=== PATIENT | female | born 1940 | race Caucasian/White ===

== ENCOUNTER 2019-05-22 08:41 | Emergency (ER) | payer MEDICARE, OTHER ==
[~2019-05-22] VITALS: Ht 162.6 cm; Wt 100.0 kg
[~2019-05-22 08:41] MED LIST: ASA LO-DOSE81 MG OR; ASPIRIN 8181 MG PO; ENALAPRIL10 MG PO; GLIMEPIRIDE2 MG PO; HYDREA500 MG PO; HYDROCHLOROT12.5 MG PO; HYDROCHLOROT25 MG OR; IMDUR30 MG OR; KEFLEX500 MG PO; KLOR-CON M2020 MEQ OR; METFORMIN1000 MG PO; METFORMIN500 MG PO; METOPROLOL TART50 MG PO; METOPROLOL100 M1 PO; METOPROLOL50 M1 PO; NAPROXEN500 MG PO; PLAVIX75 MG OR; PLAVIX75 MG PO; PRAVASTATIN SOD10 MG PO; TOPROL XL OR; TOPROL XL100 MG OR; TRICOR145 MG OR; ZOCOR40 MG OR; ZYLOPRIM300 MG PO; colcrys PO
[2019-05-22] MEDS ORDERED: ENALAPRIL10 MG PO (09:02)
[2019-05-22] MEDS ORDERED: METOPROL TAR25 MG PO (09:03)
[2019-05-22] MEDS ORDERED: GLIPIZIDE5 MG PO (09:04)
[2019-05-22] MEDS ORDERED: GLIPIZIDE ER10 M1 PO (10:02)
[2019-05-22] MEDS ORDERED: LOPRESSOR 550 MG/TAB PO (10:03)
[2019-05-22] MEDS ORDERED: CLOPIDOGREL75 MG PO (10:03)
[2019-05-22] MEDS ORDERED: ENALAPRIL MALEA20 MG PO (10:03)
[2019-05-22] MEDS ORDERED: NAPROXEN DR500 MG PO (10:09)
[2019-05-22 10:35] VITALS: BP 130/70
== END 2019-05-22 10:35 | disposition home or self-care (01) ==
LOC: ED 08:41
DX: S32.000A Wedge compression fracture of unspecified lumbar vertebra, initial encounter for closed fracture (principal); S70.02XA Contusion of left hip, initial encounter; E11.9 Type 2 diabetes mellitus without complications; W18.2XXA Fall in (into) shower or empty bathtub, initial encounter; Y93.E1 Activity, personal bathing and showering; Y92.002 Bathroom of unspecified non-institutional (private) residence as the place of occurrence of the external cause; Z79.84 Long term (current) use of oral hypoglycemic drugs

== ENCOUNTER 2019-12-13 | Emergency (ER) | payer MEDICARE, OTHER ==
[~2019-12-13] MED LIST changes: +AMOX/K CLAV875 M1 PO; +CLOPIDOGREL75 MG PO; +DOXYCYCL HYC100 MG PO; +ENALAPRIL MALEA20 MG PO; +GLIPIZIDE ER10 M1 PO; +GLIPIZIDE5 MG PO; +LISINOP/HCTZ1 TA1 PO; +LOPRESSOR 550 MG/TAB PO; +METOPROL TAR25 MG PO; +NAPROXEN DR500 MG PO; +PIOGLITAZONE HC30 MG PO
[2019-12-13] MEDS ORDERED: LEVEMIR100 UNIT/M SC (07:40)
[2019-12-13] MEDS ORDERED: HYDROCHLOROT25 MG PO (07:41)
[2019-12-13] MEDS ORDERED: LISINOPRIL2.5 MG PO (07:42)
[2019-12-13] MEDS ORDERED: CEPHALEXIN500 M1 PO (08:30)
== END 2019-12-13 08:47 | disposition home or self-care (01) ==
DX: L03.032 Cellulitis of left toe (principal); I10 Essential (primary) hypertension; E11.9 Type 2 diabetes mellitus without complications; I25.2 Old myocardial infarction; Z79.4 Long term (current) use of insulin

== ENCOUNTER 2019-12-15 05:30 | Inpatient (IN) | payer MEDICARE, OTHER ==
[~2019-12-15] VITALS: Ht 160 cm; Wt 102.4 kg
[2019-12-15] VITALS (18 sets, daily range): BP systolic 65–114; BP diastolic 31–76
[~2019-12-15 05:30] MED LIST changes: +CEPHALEXIN500 M1 PO; +HYDROCHLOROT25 MG PO; +LEVEMIR100 UNIT/M SC; +LISINOPRIL2.5 MG PO
--- NOTE | 2019-12-15 05:34 | NUR ---
PATIENT TO ROOM 14. UNDRESSED INTO A GOWN. PLACED ON MONITOR. TRIAGE COMPLETED AT BEDSIDE. AWAITING MD GIANG.
[2019-12-15 07:03] LABS: IMMATURE GRANULOCYTES 2.4 % (0.0-5.0); MEAN CORPUSCULAR HGB 19.6 pG CALC (26.0-32.0); MEAN CORPUSCULAR HGB CONC 29.2 g/L CALC (32.0-36.0); NEUT# 22.68 thou/uL (2.00-7.15); RED BLOOD COUNT 6.85 mill/uL (4.20-5.60); RED CELL DISTRI WIDTH 18.7 % (11.5-15.5)
[2019-12-15 07:06] LABS: HEMATOCRIT 45.9 % (37.0-47.0); HEMOGLOBIN 13.4 g/dl (12.0-16.0)
--- NOTE | 2019-12-15 07:07 | NUR ---
REPORT RECIEVED FROM SIN MURPHY; PT RETURNED FROM RADIOLOGY AT THIS TIME; MONITORING DEVICES REAPPLIED; CALL LIGHT WITHIN REACH; WILL CONTINUE TO MONITOR
[2019-12-15 07:19] LABS: ALBUMIN 4.1 g/dL (3.2-5.0); ALKALINE PHOSPHATASE 122 u/l (38-126); BUN 26 mg/dL (8-23); BUN/CREATININE RATIO 38 (12-20 (CALC)); CARBON DIOXIDE 25 mmol/l (22-30); CPK 81 u/l (30-165); CREATININE 0.7 mg/dL (0.5-1.0); ETHYL ALCOHOL 0 mg/dl (0-30); GFR > 60 ML/MIN (>=60 (CALC)); GFR FOR AFR.AMER. > 60 ML/MIN (>=60 (CALC)); SGOT/AST 23 u/l (9-36); TOTAL PROTEIN 6.8 g/dL (6.3-8.2)
[2019-12-15 07:22] LABS: ANION GAP 18 (6-22 (CALC)); BILIRUBIN, TOTAL 2.2 mg/dL (0.0-1.4); CHLORIDE 85 mmol/l (95-108); SODIUM 123 mmol/l (137-146)
--- NOTE | 2019-12-15 07:23 | NUR ---
PT IS SEEN BY DAY NURSE AND Sree
--- NOTE | 2019-12-15 08:00 | NUR ---
PT RESTING ON STRETCHER; MONITORING DEVICES IN PLACE; CALL LIGHT WITHIN REACH; WILL CONTINUE TO MONITOR
--- NOTE | 2019-12-15 09:00 | NUR ---
DR VERDIN AT BEDSIDE FOR REASSESSMENT OF ABCESS TO LEFT THIGH
--- NOTE | 2019-12-15 10:00 | NUR ---
CENTRAL LINE TO RIJ IN PLACE; IVF AND ANTIBIOTICS INFUSING; MONITORING DEVICES IN PLACE; CALL LIGHT WITHIN REACH; WILL CONTINUE TO MONITOR
--- NOTE | 2019-12-15 11:00 | NUR ---
PT TO OR AT THIS TIME; REPORT GIVEN TO SIN BULL
--- NOTE | 2019-12-15 11:47 | NUR ---
PER OR, PT NOW HAS AN CITLALLI. STAFF WILL NEED TO CHANGE PTS ROOM UPON ARRIVAL.
--- NOTE | 2019-12-15 12:41 | NUR ---
PT NOT ON UNIT YET
--- NOTE | 2019-12-15 15:30 | NUR ---
PT STATES SHE CAME TO THE ER AFTER FALLING AT HOME. SHE STATES SHE GOT UP TO URINATE AROUND 0100, FELL, & COULDNT GET UP. STATES SHE WAS SCREAMING FOR HELP BUT LIVES ALONE. C/O PAIN TO LEFT KNEE; NO DISCOLORATION OR DISFORMATION TO AREA. ALSO SMALL PINK AREA TO RIGHT ELBOW; NO OPEN WOUND. PT ABLE TO MIRANDA. PT DROWSY BUT A&Ox3. ARRIVED TO ICU FROM PACU POST I&D TO PERIRECTAL ABSCESS ON LEFT GROIN; WOUND PACKED WITH DRY KERLIX C/D/I. BILATERAL SUPERVISOR SHOW OPERATIONS MODERATE. EYES SLUGGISH @4. SKIN WARM/DRY/PINK. SPEECH CLEAR. PT DENIES SMOKING, DRINKING, REC DRUG USE. USES DENTURES. SINUS RHYTHM - SINUS TACHY ON TELE WITH PVC'S.
--- NOTE | 2019-12-15 16:51 | NUR ---
UNSURE OF MEDICATIONS GIVEN PRIOR TO ARRIVING TO ICU.
--- NOTE | 2019-12-15 17:45 | NUR ---
PTS O2 RAISED TO 3L NC WHILE SLEEPING D/T SATS AROUND 89%.
--- NOTE | 2019-12-15 18:06 | NUR ---
FARA ADAMS NOTIFIED OF "VTACH" ON MONITOR. TELE SHOWS HR IRREG HR IN 120-130'S.
--- NOTE | 2019-12-15 18:10 | NUR ---
RT @BEDSIDE FOR EKG.
--- NOTE | 2019-12-15 19:36 | NUR ---
REPORT GIVEN BY KATHE VOGT. PATIENT RESTING WITH EYES CLOSED. RESP EVEN AND UNLABORED. A-LINE PRESENT AND READING BP. MARCOS DRAINING CLEAR, YELLOW URINE. WOUND DRESSING CDI. TLC INFUSING FLUIDS AND LEVO. FALL PRECATUIONS IN PLACE.
--- NOTE | 2019-12-15 21:13 | NUR ---
PATIENT REMOVED A-LINE HERSELF. I APPLIED PRESSURE FOR 5 MINS AND APPLIED A PRESSURE DRESSING.
--- NOTE | 2019-12-15 23:11 | NUR ---
PATIENT REQUESTS THAT STAFF CALL HER GRANDDAUGHTER IF CONDITION CHANGES. TERRANCE BISHOP [phone].
[2019-12-16] VITALS (27 sets, daily range): BP systolic 85–138; BP diastolic 30–91
--- NOTE | 2019-12-16 01:45 | NUR ---
PATIENT RESTING WITH EYES CLOSED. RESP EVEN AND UNLABORED. NO S/S OF DISTRESS NOTED.
--- NOTE | 2019-12-16 04:05 | NUR ---
PATIENT RESTING WITH EYES CLOSED. RESP EVEN AND UNLABORED. NO S/S OF DISTRESS NOTED.
[2019-12-16 05:48] LABS: IMMATURE GRANULOCYTES 1.8 % (0.0-5.0); MEAN CORPUSCULAR HGB CONC 29.5 g/L CALC (32.0-36.0); NEUT# 21.71 thou/uL (2.00-7.15); RED BLOOD COUNT 5.59 mill/uL (4.20-5.60); RED CELL DISTRI WIDTH 18.1 % (11.5-15.5)
[2019-12-16 05:59] LABS: HEMOGLOBIN 11.2 g/dl (12.0-16.0)
[2019-12-16 06:32] LABS: URINE BILIRUBIN - DIPSTICK NEGATIVE (NEGATIVE); URINE BLOOD DIPSTICK NEGATIVE (NEGATIVE); URINE COLOR YELLOW; URINE GLUCOSE - DIPSTICK 500 mg/dL (NEGATIVE); URINE KETONE NEGATIVE (NEGATIVE); URINE LEUK ESTERASE NEGATIVE (NEGATIVE); URINE NITRITE - DIPSTICK NEGATIVE (Negative); URINE PH 5.5 (4.5-8.0); URINE PROTEIN - DIPSTICK NEGATIVE (NEG-TRACE)
[2019-12-16 06:36] LABS: BUN 17 mg/dL (8-23); BUN/CREATININE RATIO 36 (12-20 (CALC)); CARBON DIOXIDE 22 mmol/l (22-30); CHLORIDE 95 mmol/l (95-108); CREATININE 0.5 mg/dL (0.5-1.0); GFR > 60 ML/MIN (>=60 (CALC)); GFR FOR AFR.AMER. > 60 ML/MIN (>=60 (CALC)); SODIUM 124 mmol/l (137-146)
[2019-12-16 06:41] LABS: ANION GAP 11 (6-22 (CALC)); POTASSIUM 3.5 mmol/l (3.5-5.1)
--- NOTE | 2019-12-16 08:00 | NUR ---
DRESSING CHANGED, OLD PACKING REMOVED, NEW DRY KERLIX PACKED INTO WOUND ON LEFT GROIN. PT ABLE TO REPOSITION SELF AND ASSIST WITH DRESSING CHANGE. PER OR WRITTEN ORDERS.
--- NOTE | 2019-12-16 09:51 | NUR ---
ANGIE CHAUDHARI, @BEDSIDE FOR ASSESSMENT.
--- NOTE | 2019-12-16 10:32 | NUR ---
RT @BEDSIDE FOR I.S. INSTRUCTIONS/EDUCATION
--- NOTE | 2019-12-16 11:13 | NUR ---
DISCUSSED RECVING OUTSIDE PHONE CALLS WITH PT & NEED TO SHARE UNITS ONLY PORT PHONE WIHT OTHER PTS. ALSO DISCUSSED CHOOSING A [facility] TO GATHER INFORMATION INSTEAD OF MANY MANY PEOPLE CALLING FOR UPDATES. PT UPSET WITH STAFF LACK OF MESSAGE TAKING.
--- NOTE | 2019-12-16 11:20 | NUR ---
STAFF CALLED TO ROOM BY YOVANA TO REFILL PTS WATER CUP WITH HER PITCHER SITTING ON BEDSIDE TABLE.
--- NOTE | 2019-12-16 11:40 | NUR ---
PT UP IN RECLINER FOR LUNCH, FEET ELEVATED.
--- NOTE | 2019-12-16 17:00 | NUR ---
DRY KERLIX CHANGED PER ORDERS. PHOTOGRAPHS TAKEN.
--- NOTE | 2019-12-16 18:25 | NUR ---
PT STATES SHE IS ALLERGIC TO ALL TAPES & LATEX, STATES IT PULLS HER SKIN. NEW ALLERGIES DOCUMENTED.
--- NOTE | 2019-12-16 19:05 | NUR ---
REPORT GIVEN BY KATHE VOGT. PATIENT IS WAKE AND ON TE PHONE WITH A FAMILY MEMEBER. RESP EVEN AND UNLABORED. NO S/S OF DISTRESS NOTED. RIJ INFUSING MEDICATION. MARCOS DRAINING TO GRAVITY. PLAN OF CARE DISCUSSED. FALL PRECATUIONS IN PLACE. PATIENT INFORMED TO CALL WITH ANY QUESTIONS OR CONCERNS.
--- NOTE | 2019-12-16 20:44 | NUR ---
DRESSING CHANGE PERFORMED ON RIJ.
--- NOTE | 2019-12-16 21:54 | NUR ---
PATIENT AWAKE LAYING IN BED. RESP EVEN AND UNLABORED. NO S/S OF DISTRESS NOTED. PRESSURE DRESSING REMOVED FROM A-LINE SITE, AFTER 24 HRS ON.
--- NOTE | 2019-12-16 23:50 | NUR ---
DRESSING CHANGE PERFORMED ON L GROIN.
[2019-12-17] VITALS (23 sets, daily range): BP systolic 97–165; BP diastolic 47–87
--- NOTE | 2019-12-17 03:47 | NUR ---
PATIENT RESTING WITH EYES CLOSED. RESP EVEN AND UNLABORED. NO S/S OF DISTRESS NOTED.
--- NOTE | 2019-12-17 04:02 | NUR ---
MORNING LABS DRAWN. LEVO HAS BEEN TURNED OFF, PATIENT'S BP HAS BEEN STABLE ALL NIGHT. WILL KEEP A CLOSE EYE ON HER BP.
[2019-12-17 05:35] LABS: HEMATOCRIT 33.2 % (37.0-47.0); HEMOGLOBIN 9.8 g/dl (12.0-16.0); MEAN CORPUSCULAR HGB 20.1 pG CALC (26.0-32.0); MEAN CORPUSCULAR HGB CONC 29.5 g/L CALC (32.0-36.0); RED BLOOD COUNT 4.88 mill/uL (4.20-5.60); RED CELL DISTRI WIDTH 17.3 % (11.5-15.5)
[2019-12-17 06:13] LABS: ANION GAP 9 (6-22 (CALC)); BUN 8 mg/dL (8-23); BUN/CREATININE RATIO 19 (12-20 (CALC)); CARBON DIOXIDE 24 mmol/l (22-30); CHLORIDE 98 mmol/l (95-108); CREATININE 0.4 mg/dL (0.5-1.0); GFR > 60 ML/MIN (>=60 (CALC)); GFR FOR AFR.AMER. > 60 ML/MIN (>=60 (CALC)); POTASSIUM 3.4 mmol/l (3.5-5.1); SODIUM 128 mmol/l (137-146)
--- NOTE | 2019-12-17 08:30 | NUR ---
NC REMOVED, PER PT REQUEST. PT BREATHING EVEN/UNLABORED, 99% ON RA.
--- NOTE | 2019-12-17 08:52 | NUR ---
S: VIDA ELKINS is a 79 F who presents with septic shock and necrotizing fasciitis. She has a history of gout, T2DM, HTN, OR, and skin cancer. All medications in patient's chart were reviewed. O: VS: BP:104/94 mmHg, P:86 b/m, RR:13 breaths/min ,T:96.6 W:103.18 kg>, HT:63inch, Scr=0.4mg/dl ,CrCl= 54.1 ml/min A: Preliminary blood culture is showing no growth. P: Patient is on Zosyn 3.375GM IV Q6H. Vancomycin ordered for pharmacy to dose. Vancomycin dose today 1250mg IV Q12H. Vancomycin trough is drawn before the 4th dose on 12/18/19 at 19:30. Vancomycin goal trough is between <15-20 mcg/ml>. Pharmacy will follow and or advise on antibiotics use as needed.
--- NOTE | 2019-12-17 09:44 | NUR ---
FARA ADAMS @BEDSIDE FOR ASSESSMENT.
--- NOTE | 2019-12-17 09:50 | NUR ---
IVF TITRATED DOWN TO 75ML/HR PER EMAR.
--- NOTE | 2019-12-17 14:24 | NUR ---
PT ASSISTED x1 BACK TO BED. PT REPOSTIONED IN BED PER REQUEST.
--- NOTE | 2019-12-17 18:45 | NUR ---
RECEIVED REPORT FROM KATHE VOGT.
--- NOTE | 2019-12-17 19:30 | NUR ---
RECEIVED PT AWAKE AND ALERT WATCHING TV. PT WITH NO C/O PAIN AT THIS TIME. CALL EDMOND IN REACH.
--- NOTE | 2019-12-17 20:00 | NUR ---
PT RELATED SHE IS STILL SEEING SOME HALLUCINATONS. PT IS AAOX3.
--- NOTE | 2019-12-17 21:30 | NUR ---
PT REQUESTED PAIN MED, WHEN RETURNING TO ROOM WITH MED, PT STATED SHE DID NOT WANT IT NOW. DISCUSSED CHANGING DRESSING TO GROIN. PT REFUSED DRESSING CHANGE. PT RELATED IT FEELS FINE AND YOUR NOT GOING TO CHANGE IT.
--- NOTE | 2019-12-17 22:00 | NUR ---
PT AWAKE AND ALERT. NO C/O PAIN. NO NEEDS AT THIS TIME. CALL EDMOND IN REACH.
[2019-12-18] VITALS (22 sets, daily range): BP systolic 116–172; BP diastolic 56–93
--- NOTE | 2019-12-18 | NUR ---
PT AWAKE AND ALERT. OFFERED PAIN MED, REFUSED. NO NEEDS AT THIS TIME. CALL EDMOND IN REACH.
--- NOTE | 2019-12-18 02:00 | NUR ---
PT WITH EYES CLOSED. RESP EVEN AND UNLABORED. CALL EDMOND IN REACH.
--- NOTE | 2019-12-18 05:17 | NUR ---
PT REQUESTED PAIN MED FOR L KNEE PAIN. SCD'S OFF. CMS INTACT TO L FOOT. CALL EDMOND IN REACH.
--- NOTE | 2019-12-18 05:18 | NUR ---
PT REFUSED DRESSING CHANGE. PT RELATED THE DR IS GOING TO DO SOMETHING FOR IT. ENCOURAGED PT THAT THE DR ORDERED THE 3 TIMES A DAY RESSING CHANGE. PT REFUSED.
--- NOTE | 2019-12-18 05:20 | NUR ---
UNABLE TO FLUSH BLUE PORT ON R IJ. WHITE FLUSHED WITHOUT DIFFICULTIES, FLUIDS INFUSING INTO BROWN PORT.
[2019-12-18 05:21] LABS: HEMATOCRIT 34.7 % (37.0-47.0); HEMOGLOBIN 9.9 g/dl (12.0-16.0); MEAN CELL VOLUME 68.6 fL CALC (80.0-100.0); MEAN CORPUSCULAR HGB 19.6 pG CALC (26.0-32.0); MEAN CORPUSCULAR HGB CONC 28.5 g/L CALC (32.0-36.0); RED BLOOD COUNT 5.06 mill/uL (4.20-5.60); RED CELL DISTRI WIDTH 17.2 % (11.5-15.5)
[2019-12-18 05:45] LABS: ANION GAP 5 (6-22 (CALC)); BUN 4 mg/dL (8-23); BUN/CREATININE RATIO 9 (12-20 (CALC)); CARBON DIOXIDE 28 mmol/l (22-30); CHLORIDE 104 mmol/l (95-108); CREATININE 0.4 mg/dL (0.5-1.0); GFR > 60 ML/MIN (>=60 (CALC)); GFR FOR AFR.AMER. > 60 ML/MIN (>=60 (CALC)); POTASSIUM 3.4 mmol/l (3.5-5.1); SODIUM 134 mmol/l (137-146)
--- NOTE | 2019-12-18 06:57 | NUR ---
REPORT TO FIONA VOGT.
--- NOTE | 2019-12-18 07:00 | NUR ---
PT RESTING IN BED AWAKE. PT IS ALERT AND ORIENTED X3. SHIFT ASSESSMENT COMPLETED AT THIS TIME. IV PATENT X2. PT REFUSED DRESSING CHANGED AT THIS TIME. CALL LIGHT IN REACH. WILL CONTINUE TO MONITOR
--- NOTE | 2019-12-18 07:45 | NUR ---
NOTIFIED DR LIANG THAT PATIENT HAD REFUSED DRESSING CHANGES TRHOUGHOUT NIGHTSHIFT AND THIS MORNING WAS STATING SHE WAS SUPPOSE TO GO BACK TO OR AND WAS CONTINUING TO REFUSE DRESSING CHANGE. ORDERS RECEIVED TO LEAVE PT NPO AT THIS TIME AND HE WOULD BE BY TO EVALUATE PATIENT. THIS PLAN COMMUNICATED TO PATIENT. PATIENT VERBALIZED UNDERSTANDING. WILL CONTINUE TO MONITOR.
--- NOTE | 2019-12-18 08:43 | NUR ---
DR ORTEGA AT BEDSIDE AT THIS TIME
--- NOTE | 2019-12-18 09:00 | NUR ---
DR LIANG AT BEDSIDE AT THIS TIME.
--- NOTE | 2019-12-18 09:20 | NUR ---
PT TO OR VIA BED WITH OR STAFF X2
--- NOTE | 2019-12-18 12:30 | NUR ---
PT RETURNED FROM OR VIA BED. PT IS ALERT AND ORIENTED X3. ASSESSMENT REMAINS UNCHANGED. PT IS ALERT AND ORIENTED X3. WOUND VAC IN PLACE. PT WITH COMPLAINTS OF GENERALZED PAIN OF 5/10.T MEDICATED WITH AM MEDS. ACCUCHECK 215 LEVEMIR GIVEN AM DOSE. MARCOS DRAINING CLEAR YELLOW URINE AT THIS TIME. TLC TO RIJ. WHITE LINE IS ONLY LINE WITH ABILITY TO FLUSH OR DRAW BLOOD. 20 LAC PATENT. SCDS IN PACE. CALL LIGHT IN REACH. WILL CONTINUE TO MONITOR.
--- NOTE | 2019-12-18 13:20 | NUR ---
FARA PADDING GLUER NOTIFIED OF NO BM IN 4 DAYS. NEW ORDERS RECEIVED.
--- NOTE | 2019-12-18 13:21 | NUR ---
DIET ORDERS ADVANCE TOLERATED. PT TOLERATED ICE CHIPS IN PACU. PT TOLERATED WATER ON FLOOR. PROVIDED PUDDING AT THIS TIME. WILL CONTINUE TO MONITOR
--- NOTE | 2019-12-18 13:45 | NUR ---
PT REPOSITIONED IN BED AT THIS TIME.
--- NOTE | 2019-12-18 14:17 | NUR ---
PT SHOUTING FROM ROOM DUE TO CALL LIGHT FALLING ON FLOOR. WHILE IN ROOM WOUND VAC DISCONNECTED FROM WOUND. NEW TEGADERM PLACED OVER WOUMD VAC AND WOUND VAC SETTINGS BACK TO 125 AFTER PLACEMENT. ENCOURAGED PATIENT TO CALL FOR ASSISTANCE WITH REPOSITIONING IN BED. PT VERBALIZED UNDERSTANDING
--- NOTE | 2019-12-18 14:30 | NUR ---
ASSSITED PATIENT UP TO BSC. PATIENT REQUESTED TO WAIT FOR MOM AND MIRALAX DUE TO THINKING SHE WOULD HAVE A BM.
--- NOTE | 2019-12-18 14:36 | NUR ---
DR WHELAN FROM WOUND CARE AT BEDSIDE AT THIS TIME.
--- NOTE | 2019-12-18 15:00 | NUR ---
PT ASSISTED BACK TO BED AT THIS TIME. NO BM AT THIS TIME. PT REPORTS PASSING A LOT OF GAS.
--- NOTE | 2019-12-18 16:00 | NUR ---
PT RESTING IN BED AT THIS TIME. DISCUSSED WITH PATIENT ABOUT GOING TO REHAB FOR PHYSICAL THERAPY TO REGAIN STRENGTH DUE TO WEAKNESS NOTED UPON TRANSFER TO AND FROM [facility]. PATIENT AGREEABLE AT THIS TIME. DR ORTEGA AND CASE MANAGEMENT NOTIFED.
--- NOTE | 2019-12-18 17:00 | NUR ---
NOTIFIED FARA ADAMS OF VISUAL HALLUCINATIONS. PT STATES SHE DID HAVE THIS LAST TIME AFTER SURGERY. PT IS CONTINUOUSLY ANXIOUS AND SWEATING AND PULLING AT LINES. NOTIFIED FARA ADAMS WELL. AWAITING NEW ORDERS.
--- NOTE | 2019-12-18 17:30 | NUR ---
INTO PT ROOM TO SET UP FOR PM MEAL AND CHECK ACCUCHECK. PT WITH COMPLAINTS OF NAUSEA. MEDICATED PER DEC. ACCUCHECK 195. MEDICATED PER DEC.
--- NOTE | 2019-12-18 18:50 | NUR ---
RECEIVED REPORT FROM FIONA VOGT.
--- NOTE | 2019-12-18 19:10 | NUR ---
PT WITH EYES CLOSED. SR AT 70, RESP EVEN AND UNLABORED. CALL EDMOND IN REACH.
--- NOTE | 2019-12-18 20:00 | NUR ---
PT AWAKE AND ALERT. NO C/O PAIN AT THIS TIME. PT DENIED HALLUCINATIONS. HR SR 75, RESP EVEN AND UNLABORED. CALL BEEL IN REACH.
--- NOTE | 2019-12-18 22:00 | NUR ---
PT WITH EYES CLOSED, RESP EVEN AND UNLABORED. CALL EDMOND IN REACH.
[2019-12-19] VITALS (8 sets, daily range): BP systolic 113–182; BP diastolic 59–91
--- NOTE | 2019-12-19 | NUR ---
PT WITH EYES CLOSED, RESPONDS TO VERBAL STIMULI. NO C/O PAIN. CALL EDMOND IN REACH.
--- NOTE | 2019-12-19 02:00 | NUR ---
PT WITH EYES CLOSED, RESPONDS TO VERBAL STIMULI. CALM, NO NEEDS AT THIS TIME. CALL EDMOND IN REACH.
--- NOTE | 2019-12-19 04:00 | NUR ---
PT WITH EYES CLOSED, OPENED WHEN ENTERING ROOM. PT ASK FOR FAN TO BE TURNED OFF. NO C/O PAIN. CALL EDMOND IN REACH.
[2019-12-19 05:22] LABS: HEMATOCRIT 36.9 % (37.0-47.0); HEMOGLOBIN 10.4 g/dl (12.0-16.0); MEAN CELL VOLUME 69.5 fL CALC (80.0-100.0); MEAN CORPUSCULAR HGB 19.6 pG CALC (26.0-32.0); MEAN CORPUSCULAR HGB CONC 28.2 g/L CALC (32.0-36.0); RED BLOOD COUNT 5.31 mill/uL (4.20-5.60); RED CELL DISTRI WIDTH 17.5 % (11.5-15.5)
[2019-12-19 05:40] LABS: ANION GAP 8 (6-22 (CALC)); BUN 3 mg/dL (8-23); BUN/CREATININE RATIO 8 (12-20 (CALC)); CARBON DIOXIDE 27 mmol/l (22-30); CHLORIDE 103 mmol/l (95-108); CREATININE 0.3 mg/dL (0.5-1.0); GFR > 60 ML/MIN (>=60 (CALC)); GFR FOR AFR.AMER. > 60 ML/MIN (>=60 (CALC)); MAGNESIUM 1.8 mg/dL (1.6-2.3); POTASSIUM 3.9 mmol/l (3.5-5.1); SODIUM 135 mmol/l (137-146)
--- NOTE | 2019-12-19 06:00 | NUR ---
PT AWAKE AND ALERT, C/O LOW BACK PAIN. MEDICATED. CALL EDMOND IN REACH.
--- NOTE | 2019-12-19 06:57 | NUR ---
REPORT GIVEN TO FIONA VOGT.
--- NOTE | 2019-12-19 07:00 | NUR ---
PT RESTING IN BED WITH EYES CLOSED. PT AROUSES EASILY TO VERBAL STIMULI. PT IS ALERT AND ORIENTED X3. SHIFT ASSESSMENT COMPLETED AT THIS TIME. IV PATENT X2. PT ASSISTED TO RECLINER AT THIS TIME. PT A MINIMAL ASSIST AT THIS TIME. WOUND VAC DRAINING AT THIS TIME. MARCOS DRAINING CLEAR YELLOW. CALL LIGHT IN REACH. WILL CONTINUE TO MONITOR.
--- NOTE | 2019-12-19 07:30 | NUR ---
PT GIVEN 2 PRUNE JUICE WITH MOM AND MIRALAX.
--- NOTE | 2019-12-19 07:45 | NUR ---
PT SET UP FOR AM MEAL AT THIS TIME.
--- NOTE | 2019-12-19 08:44 | NUR ---
DR ORTEGA AT BEDSIDE AT THIS TIME
--- NOTE | 2019-12-19 09:00 | NUR ---
PT ASSISTED TO BSC FOR BM. PT TOLERATING TRANSFER WELL.
--- NOTE | 2019-12-19 09:30 | NUR ---
PT TRANSFERED BACK TO RECLINER. LARGE LOOSE AND LIQUID BM NOTED.
--- NOTE | 2019-12-19 11:45 | NUR ---
PT SET UP FOR NOON MEAL AT THIS TIME. PT REMAINS UP IN RECLINER AT THIS TIME. VISITOR IN ROOM. CALL LIGHT IN REACH. WILL CONTINUE TO MONITOR.
--- NOTE | 2019-12-19 13:00 | NUR ---
PT ASSISTED TO BSC AT THIS TIME.
--- NOTE | 2019-12-19 13:20 | NUR ---
IV site discontinued, cath intact. No edema , no redness, voices no discomfort.
--- NOTE | 2019-12-19 13:23 | NUR ---
PT CLEANSED OF BM AND ASSISTED BACK TO BED AT THIS TIME. MEDICATED PER MAR FOR PAIN AT THIS TIME.
--- NOTE | 2019-12-19 13:54 | NUR ---
REPORT CALLED TO INDRA VOGT ON MED SURG
--- NOTE | 2019-12-19 14:00 | NUR ---
PRITI RODRIGUEZ'D AT THIS TIME
--- NOTE | 2019-12-19 14:12 | NUR ---
WOUND VAC LEAKING ALARM. REPLACED TEGADERM. PT THEN TO MED SURG VIA BED IN STABLE CONDITION.
--- NOTE | 2019-12-19 15:00 | NUR ---
PATIENT TRANSFER FROM ICU, PATIENT A/O X4, PATIENT C/O 8/10 LOWER BACK PAIN, PATIENT S/S RESP DISTRESS, PATIENT ON ROOM AIR, PATIENT VOIDED AFTER MARCOS REMOVED IN ICU, WOUND VAC TO UPPER LEFT LEG IS FUNCTIONING, D51/2NS INFUSING IN CENTRAL LINE WITHOUT COMPLICATIONS, WILL CONTINUE TO MONITOR PATIENT, CALL LIGHT WITHIN REACH
--- NOTE | 2019-12-19 19:00 | NUR ---
RECEIVED REPORT FROM NURSE BURRELL PATIENT RESTING IN BED, DENIES PAIN AT THIS TIME, CONNECTED TO WOUND VAC @ 125MMHG, GOOD SEAL, WILL CONTINUE TO MONITOR.
--- NOTE | 2019-12-19 21:00 | NUR ---
PATIENT ALERT ORIENTED ABLE TO MAKE NEEDS KNONW, WITH TRIPLE RIGHT IJ LINE, PATENT GOOD BLOOD RETURN WITH D51/2 NS @ 75CC/HR INFUSING WELL, LBM 12/19, BS 139, WITH ONGOING WOUND VAC @ 125 ASSISTED PATIENT TO THE COMMODE VOIDED CLEAR YELLOW URINE, SLOW STEA GAIT GOING TO COMMODE, CALL LIGHT AT REACH.
--- NOTE | 2019-12-19 23:00 | NUR ---
PATIENT ASSISTED TO BED SIDE COMMODE,AND ASSISTED BACK IN BED, WOUND VAC SEAL SHOWS LEAK, FIXED LEAK WITH TEGADERM AT THIS TIME, BNACK TO GOOD SEAL @ 125
[2019-12-20 00:22] VITALS: BP 158/81
--- NOTE | 2019-12-20 00:22 | NUR ---
DUE ANTIBIOTIC GIVEN ATTHIS TIME.
--- NOTE | 2019-12-20 04:26 | NUR ---
PATIENT AWAKE AT THIS TIME, IV INFUSING WELL, C/O OF PAIN ON LOWER BACK AND INCISION PRN PERCOCET GIVEN WILL REEVALUATE.
[2019-12-20 05:28] LABS: HEMATOCRIT 37.8 % (37.0-47.0); HEMOGLOBIN 10.6 g/dl (12.0-16.0); MEAN CELL VOLUME 70.5 fL CALC (80.0-100.0); MEAN CORPUSCULAR HGB 19.8 pG CALC (26.0-32.0); RED BLOOD COUNT 5.36 mill/uL (4.20-5.60); RED CELL DISTRI WIDTH 17.9 % (11.5-15.5)
[2019-12-20 05:35] VITALS: BP 173/84
[2019-12-20 05:55] LABS: BUN 3 mg/dL (8-23); BUN/CREATININE RATIO 8 (12-20 (CALC)); CHLORIDE 100 mmol/l (95-108); CREATININE 0.4 mg/dL (0.5-1.0); GFR > 60 ML/MIN (>=60 (CALC)); GFR FOR AFR.AMER. > 60 ML/MIN (>=60 (CALC)); POTASSIUM 4.3 mmol/l (3.5-5.1); SODIUM 136 mmol/l (137-146)
[2019-12-20 06:02] LABS: ANION GAP 7 (6-22 (CALC)); CARBON DIOXIDE 33 mmol/l (22-30)
[2019-12-20 06:32] VITALS: BP 128/69
--- NOTE | 2019-12-20 07:00 | NUR ---
SHIFT CHANGE REPORT, PT AWAKE ALERT AND ORIENTED RESTING IN BED BUT GETS UP EVERY 15-30 MINS TO BSC, IVF INFUSING, WOUND VAC IN PLACE, BED IN LOWEST POSITION AND CALL EDMOND IN REACH.
[2019-12-20 08:20] VITALS: BP 146/71
--- NOTE | 2019-12-20 14:00 | NUR ---
DR WHELAN ROUNDED, REOVED WOUND VAC ITS NON-FUNCTIONAL IN THE LOCATION AFTER SEVERAL ATTEMPTS TO RESOLVE PROBLEM, WROTE NEW RODERS FOR DRESSING CHANGES.
[2019-12-20 15:25] VITALS: BP 147/73
[2019-12-20 18:32] VITALS: BP 153/76
--- NOTE | 2019-12-20 21:25 | NUR ---
ASSESSMENT COMPLETED. TRIPLE LUMEN TO RIJ WITH ORDERED IVF INFUSING. DRESSING CDI TO LEFT INNER BUTTOCK; DRESSING WAS CHANGED THIS PM BY SIN BARRAGAN; DRESSING CDI. REPOSITIONED PT. SLIGHTLY ON RIGHT SIDE WITH PUREWIC IN PLACE. PT. DENIES NEEDS FOR PAIN MEDICATION AT THIS TIME. SCD'S REAPPLIED TO BLE. PO FLUIDS OFFERED. ENCOURAGED TO CALL FOR ANY NEEDS. CALL LIGHT IS IN REACH.
--- NOTE | 2019-12-20 23:32 | NUR ---
PULLED UP IN BED FOR COMFORT; DENIES NEEDS FOR PAIN MEDS. PURE WIC IN PLACE AND CANISTER EMPTIED OF 800MLS OF CLEAR YELLOW URINE. DENIES FURTHER NEEDS. CALL LIGHT IS IN REACH.
--- NOTE | 2019-12-21 02:53 | NUR ---
RESTING IN BED WITH NO DISTRESS NOTED; DENIES NEEDS/PAIN. CALL LIGHT IS IN REACH. WILL CONTINUE TO MONITOR.
[2019-12-21 03:50] VITALS: BP 181/82
--- NOTE | 2019-12-21 03:56 | NUR ---
PT. WITH ELEVATED B/P 181/82 AND MEDICATED WITH ORDERED PRN APRESOLINE; WILL REASSESS. DENIES PAIN/NEEDS. CALL LIGHT IS IN REACH.
[2019-12-21 05:03] VITALS: BP 163/79
--- NOTE | 2019-12-21 05:17 | NUR ---
PT. REPORTING NAUSEA, MEDICATED WITH ORDERED PRN ZOFRAN AND DIET JOLYNN GERRI PROVIDED; WILL REASSESS. CALL LIGHT IS IN REACH.
[2019-12-21 05:50] LABS: HEMATOCRIT 37.4 % (37.0-47.0); HEMOGLOBIN 10.6 g/dl (12.0-16.0); MEAN CELL VOLUME 70.2 fL CALC (80.0-100.0); MEAN CORPUSCULAR HGB 19.9 pG CALC (26.0-32.0); MEAN CORPUSCULAR HGB CONC 28.3 g/L CALC (32.0-36.0); RED BLOOD COUNT 5.33 mill/uL (4.20-5.60); RED CELL DISTRI WIDTH 18.1 % (11.5-15.5)
[2019-12-21 06:10] LABS: ANION GAP 9 (6-22 (CALC)); BUN 4 mg/dL (8-23); BUN/CREATININE RATIO 12 (12-20 (CALC)); CARBON DIOXIDE 32 mmol/l (22-30); CHLORIDE 97 mmol/l (95-108); CREATININE 0.3 mg/dL (0.5-1.0); GFR > 60 ML/MIN (>=60 (CALC)); GFR FOR AFR.AMER. > 60 ML/MIN (>=60 (CALC)); POTASSIUM 3.6 mmol/l (3.5-5.1); SODIUM 134 mmol/l (137-146)
[2019-12-21 08:16] VITALS: BP 179/87
--- NOTE | 2019-12-21 08:16 | NUR ---
PT LAYING IN BED. PT A&O X3. NO DISTRESS NOTED. LT THIGH INNER DRESSING CDI NO SIGNS OF SHADOWING. SCD'S IN PLACE. NO COMPLAINTS OF PAIN AT THIS TIME. DISCUSSED POC. ASSESSMENT COMPLETED. CALL LIGHT IN REACH. CONTINUE TO MONITOR.
--- NOTE | 2019-12-21 08:49 | NUR ---
PHYSICAL THERAPY AT BEDSIDE
--- NOTE | 2019-12-21 09:46 | NUR ---
DR CAN AT BEDSIDE DISCUSSING POC
[2019-12-21] MEDS ORDERED: PERCOCET 5/325M1 TAB PO (09:51)
[2019-12-21] MEDS ORDERED: AMOX/K CLAV875 M1 PO (09:51)
[2019-12-21] MEDS ORDERED: AMLODIPINE BESYL5 MG PO (09:53)
--- NOTE | 2019-12-21 10:00 | NUR ---
PHYSICIAN AT BEDSIDE DISCUSSING THE DISCONTINUATION OF HCTZ PER PTS REQUEST. PER PT SHE IS FINDING IT DIFFICULT FOR HER TO BE GOING TO THE BATHROOM AT ALL TIMES WITH THE DRESSING IN PLACE. PER PHYSICIAN, HCTZ TO BE HELD AND D/C AND THE PT WOULD BE STARTED ON COREG. IF PT DEVELOPS FLUID ACCUMULATION WITHIN THE NEXT COUPLE DAYS IT WILL HAVE BE TO STARTED AGAIN. PT VERBALIZED UNDERSTANDING.
--- NOTE | 2019-12-21 10:33 | NUR ---
PT WAS INDEP ON BED MOB TO SUPINE>SIT AND SIT>STAND, THEN AMBULATED FROM BED TO THE BATHROOM WITH RW AND SBA. PT MANAGED TO MAINTAIN STANDING INDEPENDENTLY ~5 MINS WITH RW IN FRONT OF THE SINK WHILE BRUSHING HER TEETH. SHE THEN SAFELY WALKED BACKWARD WITH RW AND SBA TO SIT IN THE TOILET. GOOD STAND>SIT WAS NOTED WITH USE OF B HANDS. PT REQUESTED TO BE LEFT ALONE. ADVISED TO PULL THE RED STRING TO CALL A NURSE WHEN DONE. [facility] SCORE TODAY: 20 POINTS PT IS SAFE ON AMBULATION WITH RW.
[2019-12-21 10:42] VITALS: BP 179/87
--- NOTE | 2019-12-21 14:56 | NUR ---
DRESSING CHANGED PER MD ORDERS. PT TOLERATED WELL.
--- NOTE | 2019-12-21 15:58 | NUR ---
Discharge instructions given. Patient verbalizes understanding of same. Discharged in fair condition via Wheelchair to [facility] rehab with staff. All belongings sent with pt. IV intact upon removal.
--- NOTE | 2020-01-02 08:43 | NUR ---
DR LIANG RECEIVED RESULTS FROM PATHOLOGY. ATTEMPTED TO CONTACT THE PATIENT ON TWO OCCASIONS. THERE IS NO WAY TO LEAVE A MESSAGE FOR THE PATIENT.
== END 2019-12-21 16:00 | DRG 853 ==
LOC: ED 05:30 → ED-I 08:49 → ED 09:09 → ED-I 09:10 → ICU 09:10 → MS2 09:10 → ED 09:10 → ICU 12:07 → MS2 12-19 14:16
PROVIDERS: Emergency Medicine; Nurse Practitioner Family; Surgery; ADMIT Internal Medicine; ATTEND Internal Medicine
PROC: 0JB90ZZ Excision of Buttock Subcutaneous Tissue and Fascia, Open Approach (ICD-10-PCS; principal; 2019-12-15)
PROC: 02HV33Z Insertion of Infusion Device into Superior Vena Cava, Percutaneous Approach (ICD-10-PCS; 2019-12-15)
PROC: 03HB33Z Insertion of Infusion Device into Right Radial Artery, Percutaneous Approach (ICD-10-PCS; 2019-12-15)
PROC: 0JB90ZZ Excision of Buttock Subcutaneous Tissue and Fascia, Open Approach (ICD-10-PCS; 2019-12-18)
DX: A41.9 Sepsis, unspecified organism (principal); R65.21 Severe sepsis with septic shock; M72.6 Necrotizing fasciitis; E87.1 Hypo-osmolality and hyponatremia; L02.31 Cutaneous abscess of buttock; E11.9 Type 2 diabetes mellitus without complications; I10 Essential (primary) hypertension; I25.10 Atherosclerotic heart disease of native coronary artery without angina pectoris; I25.2 Old myocardial infarction; E87.6 Hypokalemia; B95.1 Streptococcus, group B, as the cause of diseases classified elsewhere; Z79.02 Long term (current) use of antithrombotics/antiplatelets; Z79.82 Long term (current) use of aspirin; Z79.4 Long term (current) use of insulin; Z95.5 Presence of coronary angioplasty implant and graft; M79.675 Pain in left toe(s); L03.032 Cellulitis of left toe
CPT/HCPCS: J0131; J3370

== ENCOUNTER 2023-06-11 08:56 | Observation (INO) | payer MEDICARE, OTHER ==
[~2023-06-11] VITALS: Ht 160 cm; Wt 81.8 kg
[2023-06-11] VITALS (44 sets, daily range): BP systolic 115–157; BP diastolic 33–76
[~2023-06-11 08:56] MED LIST changes: +AMLODIPINE BESYL5 MG PO; +FUROSEMIDE20 MG PO; +PERCOCET 5/325M1 TAB PO
--- NOTE | 2023-06-11 09:07 | NUR ---
PT ROOMED VIA W/C. PT ATTATCHED TO MONITORS.
[2023-06-11 10:15] LABS: BASO% 1.8 % (0-3); EOS% 2.8 % (0-8); HEMATOCRIT 50.3 % (37.0-47.0); IMMATURE GRANULOCYTES 5.1 % (0.0-5.0); LYMPH% 5.2 % (15-41); MEAN CELL VOLUME 72.4 fL CALC (80.0-100.0); MEAN CORPUSCULAR HGB 20.1 pG CALC (26.0-32.0); MEAN CORPUSCULAR HGB CONC 27.8 g/dL CAL (32.0-36.0); MONO% 3.4 % (2-13); NEUT# 18.71 thou/uL (2.00-7.15); NEUT% 81.7 % (42-76); RED BLOOD COUNT 6.95 mill/uL (4.20-5.60); RED CELL DISTRI WIDTH 21.3 % (11.5-15.5)
[2023-06-11 10:32] LABS: ALBUMIN 4.2 g/dL (3.2-5.0); ALKALINE PHOSPHATASE 83 u/l (38-126); ANION GAP 13 (6-22 (CALC)); BUN 18 mg/dL (8-23); BUN/CREATININE RATIO 31 (12-20 (CALC)); CARBON DIOXIDE 27 mmol/l (22-30); CHLORIDE 100 mmol/l (95-108); CREATININE 0.6 mg/dL (0.5-1.0); GFR FOR AFR.AMER. > 60 ML/MIN (>=60 (CALC)); GFR OTHER RACES > 60 ML/MIN (>=60 (CALC)); POTASSIUM 3.7 mmol/l (3.5-5.1); SGOT/AST 45 u/l (9-36); SODIUM 136 mmol/l (137-146); TOTAL PROTEIN 7.3 g/dL (6.3-8.2)
[2023-06-11 10:34] LABS: BILIRUBIN, TOTAL 1.3 mg/dL (0.02-1.3)
[2023-06-11 10:38] LABS: INTERNATIONAL NORMALIZED RATIO 1.4 RATIO (0.7-1.3); PROTHROMBIN TIME 12.9 SECONDS (9.0-12.5)
--- NOTE | 2023-06-11 11:02 | NUR ---
PT AMBULATED TO AND FROM BATHROOM, PT GAIT IS STEADY
--- NOTE | 2023-06-11 11:02 | NUR ---
RETURNED FROM RADIOLOGY
--- NOTE | 2023-06-11 12:30 | NUR ---
PT HAS BEEN GIVEN ICE FOR FACE AND KNEE, PT IS RESTING.
--- NOTE | 2023-06-11 13:49 | NUR ---
PT HAS BEEN PROVIDED APPLESAUCE AND WATER AT REQUEST. PT IS RESTING COMFORTABLY, NO PAIN REPORTED.
[2023-06-11] MEDS ORDERED: TENORMIN25 MG PO (14:27)
[2023-06-11] MEDS ORDERED: LEVEMIR100 UNIT SC (14:29)
[2023-06-11] MEDS ORDERED: TRULICITY3 MG/0.5 M SC (14:29)
--- NOTE | 2023-06-11 15:00 | NUR ---
PT IS RESTING COMFORTABLY, ALL NEEDS ADDRESSED
--- NOTE | 2023-06-11 15:40 | NUR ---
REPORT GIVEN TO ALISHA CASSIDY. PT HAS ALL BELONGINGS ON PERSON, PT ON TELE.
--- NOTE | 2023-06-11 16:00 | NUR ---
PT HAS BEEN PROVIDED ICE FOR HEAD AND KNEE.
--- NOTE | 2023-06-11 17:11 | NUR ---
report given to juma rose pt has all belongings, tele attatched.
--- NOTE | 2023-06-11 17:30 | NUR ---
RECEIVE ADMISSION FROM ER. REPORT FROM MIKAYLA VOGT. PT ALERT AND ORIENTED X3. POATIENT FALL AT HOME. R+ EYE RED, ANSON AND SWOLLEN. R+ KNEE SOWLLEN AND RED. PATIENT IS EDUCATED ABOUD MEDICATIONS, ADMISSION AND NURSING PLAN. PT REFER UNDERSTAND. SAFETY AND FALL PRECAUTIONS IN PLACE. CALL LIGHT WITHIN IN REACH.
[2023-06-11 19:33] LABS: URINE BILIRUBIN - DIPSTICK Negative (NEGATIVE); URINE BLOOD DIPSTICK Negative (NEGATIVE); URINE COLOR Yellow; URINE GLUCOSE - DIPSTICK Negative (NEGATIVE); URINE KETONE Negative (NEGATIVE); URINE LEUK ESTERASE Negative (NEGATIVE); URINE NITRITE - DIPSTICK Negative (Negative); URINE PH 5.5 (4.5-8.0); URINE PROTEIN - DIPSTICK Negative (NEG-TRACE); URINE UROBILINOGEN - DIPSTICK 0.2 E.U./dL (0.2)
--- NOTE | 2023-06-11 20:00 | NUR ---
RECEIVED REPORT FROM NURSE KRISTEL, PATIENT SITTING IN HER RECLINER, PATIENT ALERT ORIENTED X 3, NOTED HEMATOMA RT EYE, FACIAL SWELLING NOTED AND BRUISING NOTED ON RT KNEE, PATIENT SALINE LOCK ON LAC G 20 PATENT FLUSHES WELL, HOOKED ON TELEMETRY, LUNG SOUNDS CLEAR, BS 185, MD AWARE PATIENT REQUEST TO RESTART HOME MEDS.CALL LIGHT IN REACH.
--- NOTE | 2023-06-12 | NUR ---
PATIENT RESTING IN BED, EYES CLOSED, NO DISCOMFORTS NOTED AT THIS TIME, BREATHING EVEN UNLABORED, CALL LIGHT IN REACH.
[2023-06-12 00:29] VITALS: BP 114/50
--- NOTE | 2023-06-12 04:40 | NUR ---
PATIENT RESTING IN BED, NOT IN DISTRESS, LIDOCAINE PATCH PL;ACED ON LOWER BACK PATIENT NOT IN DISTRESS, CALL LIGHT IN REACH.
[2023-06-12 05:14] VITALS: BP 118/58
--- NOTE | 2023-06-12 07:00 | NUR ---
RECEIVED BEDSIDE REPORT FROM SIN HALL. PT RESTING IN BED WITH EYES CLOSED. ALL SAFETY MEASURES IN PLACE. VSS. NO NEEDS AT THIS TIME.
[2023-06-12 07:37] VITALS: BP 109/68
[2023-06-12 10:31] VITALS: BP 107/61
[2023-06-12 15:15] VITALS: BP 106/50
[2023-06-12 16:41] LABS: HEMATOCRIT 43.7 % (37.0-47.0); HEMOGLOBIN 12.4 g/dl (12.0-16.0); MEAN CELL VOLUME 72.6 fL CALC (80.0-100.0); MEAN CORPUSCULAR HGB 20.6 pG CALC (26.0-32.0); MEAN CORPUSCULAR HGB CONC 28.4 g/dL CAL (32.0-36.0); RED BLOOD COUNT 6.02 mill/uL (4.20-5.60); RED CELL DISTRI WIDTH 20.7 % (11.5-15.5)
[2023-06-12] MEDS ORDERED: TYLENOL # 31 TA1 PO (18:58)
--- NOTE | 2023-06-12 20:02 | NUR ---
IV REMOVED, TELEMETRY REMOVED, FAMILY IN ROOM TO PICKED UP PATIENT, PATIENT DISCHARGED, ASSISTTED USING WHEELCHAIR.
== END 2023-06-12 17:55 | disposition home or self-care (01) ==
LOC: ED 08:56 → ED-I 11:53 → ED 14:11 → MS2 14:12
PROVIDERS: Family Medicine; ADMIT Student in an Organized Health Care Education/Training Program; ATTEND Student in an Organized Health Care Education/Training Program
DX: S06.0X0A Concussion without loss of consciousness, initial encounter (principal); S00.83XA Contusion of other part of head, initial encounter; S00.81XA Abrasion of other part of head, initial encounter; S80.11XA Contusion of right lower leg, initial encounter; M25.561 Pain in right knee; M54.2 Cervicalgia; D72.829 Elevated white blood cell count, unspecified; I10 Essential (primary) hypertension; E11.9 Type 2 diabetes mellitus without complications; I25.2 Old myocardial infarction; M10.9 Gout, unspecified; Z95.5 Presence of coronary angioplasty implant and graft; Z79.02 Long term (current) use of antithrombotics/antiplatelets; W01.0XXA Fall on same level from slipping, tripping and stumbling without subsequent striking against object, initial encounter; Y92.009 Unspecified place in unspecified non-institutional (private) residence as the place of occurrence of the external cause; Z20.822 Contact with and (suspected) exposure to COVID-19
CPT/HCPCS: G0378

== ENCOUNTER 2023-12-08 21:30 | Observation (INO) | payer MEDICARE, OTHER ==
[~2023-12-08] VITALS: Ht 160 cm; Wt 80.7 kg
[~2023-12-08 21:30] MED LIST changes: +LEVEMIR100 UNIT SC; +TENORMIN25 MG PO; +TRULICITY3 MG/0.5 M SC; +TYLENOL # 31 TA1 PO
--- NOTE | 2023-12-08 21:31 | NUR ---
PATIENT TO ROOM 14 VIA EMS
[2023-12-08 21:39] VITALS: BP 113/64
[2023-12-08 21:45] VITALS: BP 116/71
--- NOTE | 2023-12-08 22:00 | NUR ---
IV PLACED, LABS DRAWN, EKG COLLECTED, URINE COLLECTED, PATIENT UPDATED ON CONTINUOUS PLAN OF CARE WITH NO FURTHER QUESTIONS OR CONCERNS AT THIS TIME, PATIENT AWAITING ALL FURTHER RESULTS/ORDERS AT THIS TIME.
[2023-12-08 22:03] LABS: BASO% 1.4 % (0-3); EOS% 1.3 % (0-8); IMMATURE GRANULOCYTES 3.3 % (0.0-5.0); MEAN CELL VOLUME 71.6 fL CALC (80.0-100.0); MEAN CORPUSCULAR HGB 19.8 pG CALC (26.0-32.0); MEAN CORPUSCULAR HGB CONC 27.6 g/dL CAL (32.0-36.0); MONO% 2.4 % (2-13); NEUT# 21.01 thou/uL (2.00-7.15); NEUT% 86.3 % (42-76); RED BLOOD COUNT 7.08 mill/uL (4.20-5.60); RED CELL DISTRI WIDTH 20.9 % (11.5-15.5)
[2023-12-08 22:15] VITALS: BP 108/49
[2023-12-08 22:17] LABS: URINE BILIRUBIN - DIPSTICK Negative (NEGATIVE); URINE BLOOD DIPSTICK Small (NEGATIVE); URINE GLUCOSE - DIPSTICK Negative (NEGATIVE); URINE KETONE Trace mg/dL (NEGATIVE); URINE LEUK ESTERASE Trace (NEGATIVE); URINE NITRITE - DIPSTICK Negative (Negative); URINE PH 5.5 (4.5-8.0); URINE PROTEIN - DIPSTICK 30 mg/dL (NEG-TRACE); URINE SPECIFIC GRAVITY 1.015; URINE UROBILINOGEN - DIPSTICK 0.2 E.U./dL (0.2)
[2023-12-08 22:17] LABS: ALBUMIN 4.3 g/dL (3.2-5.0); ALKALINE PHOSPHATASE 72 u/l (38-126); BUN 23 mg/dL (8-23); BUN/CREATININE RATIO 39 (12-20 (CALC)); CARBON DIOXIDE 25 mmol/l (22-30); CHLORIDE 96 mmol/l (95-108); CPK 589 u/l (30-135); CREATININE 0.6 mg/dL (0.5-1.0); ETHYL ALCOHOL 0 mg/dl (0-30); GFR FOR AFR.AMER. > 60 ML/MIN (>=60 (CALC)); GFR OTHER RACES > 60 ML/MIN (>=60 (CALC)); LIPASE 149 u/l (23-300); MAGNESIUM 2.1 mg/dL (1.6-2.3); POTASSIUM 4.7 mmol/l (3.5-5.1); TOTAL PROTEIN 7.4 g/dL (6.3-8.2)
[2023-12-08 22:18] LABS: ANION GAP 13 (6-22 (CALC)); BILIRUBIN, TOTAL 1.6 mg/dL (0.02-1.3); HEMATOCRIT 50.7 % (37.0-47.0); SGOT/AST 69 u/l (9-36); SODIUM 129 mmol/l (137-146)
[2023-12-08 22:19] LABS: LYMPH% 5.3 % (15-41)
[2023-12-08 22:25] LABS: URINE COLOR Yellow
[2023-12-08 22:26] LABS: URINE RBC 0-2 RBC/hpf (0-5); URINE SQUAMOUS EPITHELIAL CELL FEW EPI/hpf (0-FEW)
--- NOTE | 2023-12-08 23:30 | NUR ---
AT BEDSIDE FOR DISCUSSION OF ALL RESULTS AND PLAN OF CARE AT THIS TIME.
[2023-12-08] MEDS ORDERED: ONDANSETRON HCl 4 MG/2 ML SDV IV PRN (23:45)
[2023-12-08] MEDS ORDERED: FAMOTIDINE 10MG/ML 2ML SDV IV PRN (23:45)
[2023-12-08] MEDS ORDERED: MAGNESIUM HYDROXIDE 30 ML UDC PO PRN (23:45)
[2023-12-08] MEDS ORDERED: IBUPROFEN 800 MG/TAB PO PRN (23:45)
[2023-12-08] MEDS ORDERED: ALUM & MAG HYDROX-SIMETHICONE 30 ML PO PRN (23:45)
[2023-12-08] MEDS ORDERED: ONDANSETRON 4 MG/TAB ODT PO PRN (23:45)
[2023-12-09] VITALS (44 sets, daily range): BP systolic 95–129; BP diastolic 44–68
--- NOTE | 2023-12-09 00:30 | NUR ---
PATIENT UPDATED ON CONTINUOUS PLAN OF CARE, PATIIENT LIGHTS DIMMED FOR COMFORT AND BLANKET PROVIDED, PATIENT VOICES APPRECIATION OF CARE, AWAITING ROOM ASSIGNMENT UPSTAIRS AT THIS TIME.
--- NOTE | 2023-12-09 01:05 | NUR ---
PATIENT AMB TO BR AND BACK TO BED AT THIS TIME WITH ASSISTANCE X1, PATIENT UPDATED ON CONTINUOUS PLAN OF CARE WITH NO FURTHER QUESTIONS OR CONCERNS AT THIS TIME, PATIENT VOICES UNDERSTANDING AND APPRECIATION OF CARE.
--- NOTE | 2023-12-09 02:30 | NUR ---
PATIENT UPDATED ON CONTINUOUS PLAN OF CARE AT THIS TIME, PATIENT RESTING IN SEMI-FOWLERS POSITION, EASILY AROUSABLE, PATIENT AWAITING ROOM ASSIGNMENT UPSTAIRS AT THIS TIME.
[2023-12-09] MEDS ORDERED: SODIUM CHLORIDE 0.9% 1,000 ML IV PRN (03:20)
--- NOTE | 2023-12-09 03:30 | NUR ---
PATIENT ASSISTED TO BR AND BACK TO RM AT THIS TIME, PATIENT SITTING UP IN CHAIR DUE TO DISCOMFORT OF STRETCHER, PROVIDED, PATIENT UPDATED ON CONTINUOUS PLAN OF CARE WITH NO FURTHER QUESTIONS OR CONCERNS AT THIS TIME.
--- NOTE | 2023-12-09 04:00 | NUR ---
PATIENT ASSISTED BACK TO BED X1 STAFF, PATIENT UPDATED ON CONTINUOUS PLAN OF CARE WITH NO FURTHER QUESTIONS OR CONCERNS AT THIS TIME, AWAITING ROOM ASSIGNMENT UPSTAIRS.
--- NOTE | 2023-12-09 05:40 | NUR ---
PATIENT TRANSFERRED TO MS2 BED AT THIS TIME, PROVIDED COMFORT MEASURES, AWAITING ROOM ASSIGNMENT UPSTAIRS, VOICES UNDERSTANDING WITH NO FURTHER QUESTIONS OR CONCERNS AT THIS TIME.
--- NOTE | 2023-12-09 06:15 | NUR ---
PATIENT LABS DRAWN, UPDATED ON CONTINUOUS PLAN OF CARE WITH NO FURTHER QUESTIONS OR CONCERNS AT THIS TIME, PATIENT VOICES UNDERSTANDING OF ALL INSTRUCTIONS AT THIS TIME. AWAITING ROOM ASSIGNMENT UPSTAIRS.
[2023-12-09 06:21] LABS: BASO% 1.9 % (0-3); EOS% 1.4 % (0-8); HEMOGLOBIN 12.5 g/dl (12.0-16.0); IMMATURE GRANULOCYTES 3.2 % (0.0-5.0); LYMPH% 5.8 % (15-41); MEAN CELL VOLUME 71.1 fL CALC (80.0-100.0); MEAN CORPUSCULAR HGB 20.1 pG CALC (26.0-32.0); MEAN CORPUSCULAR HGB CONC 28.3 g/dL CAL (32.0-36.0); MONO% 2.8 % (2-13); NEUT# 17.35 thou/uL (2.00-7.15); NEUT% 84.9 % (42-76); RED BLOOD COUNT 6.22 mill/uL (4.20-5.60); RED CELL DISTRI WIDTH 20.7 % (11.5-15.5)
[2023-12-09 06:28] LABS: HEMATOCRIT 44.2 % (37.0-47.0)
[2023-12-09 06:38] LABS: ALKALINE PHOSPHATASE 66 u/l (38-126); ANION GAP 7 (6-22 (CALC)); BILIRUBIN, TOTAL 1.2 mg/dL (0.02-1.3); BUN 26 mg/dL (8-23); BUN/CREATININE RATIO 43 (12-20 (CALC)); CARBON DIOXIDE 29 mmol/l (22-30); CHLORIDE 99 mmol/l (95-108); CREATININE 0.6 mg/dL (0.5-1.0); GFR FOR AFR.AMER. > 60 ML/MIN (>=60 (CALC)); GFR OTHER RACES > 60 ML/MIN (>=60 (CALC)); POTASSIUM 4.5 mmol/l (3.5-5.1); SGOT/AST 45 u/l (9-36); SODIUM 130 mmol/l (137-146)
[2023-12-09 06:47] LABS: ALBUMIN 3.4 g/dL (3.2-5.0); TOTAL PROTEIN 5.7 g/dL (6.3-8.2)
[2023-12-09] MEDS ORDERED: AVAPRO75 MG PO (06:56)
[2023-12-09] MEDS ORDERED: TRESIBA FL200 UNIT/M SC (07:00)
--- NOTE | 2023-12-09 07:25 | NUR ---
PT IS ALERT. FAMILY AT BEDSIDE. VSS. PT VERBALIZED NO NEEDS AT THIS TIME. CALL LIGHT IN REACH.
--- NOTE | 2023-12-09 07:56 | NUR ---
BREAKFAST PROVIDED. PT VERBALIZED NO NEEDS AT THIS TIME.
--- NOTE | 2023-12-09 09:05 | NUR ---
PT IS RESTING. PT EASILY AROUSABLE. FAMILY AT BEDSIDE. VSS. CALL LIGHT IN REACH.
--- NOTE | 2023-12-09 10:11 | NUR ---
PT IS ALERT. PT VERBALIZED NO NEEDS AT THIS TIME. VSS.
--- NOTE | 2023-12-09 11:30 | NUR ---
PT IS RESTING. EASILY AROUSABLE. VSS. CALL LIGHT IN REACH. PT PROVIDED PO FLUID
--- NOTE | 2023-12-09 12:45 | NUR ---
PT IS ALERT. PT VERBALIZED NO NEEDS AT THIS TIME
--- NOTE | 2023-12-09 13:30 | NUR ---
PT IS ALERT. PT VERBALIZED NO NEEDS. VSS
--- NOTE | 2023-12-09 14:45 | NUR ---
PT RESTING. PT EASILY AROUSABLE. PT VSS. CALL LIGHT IN REACH.
--- NOTE | 2023-12-09 15:32 | NUR ---
PT IS IN STRETCHER. VSS. CALL LIGHT IN REACH. PT VERBALIZED NO NEEDS AT THIS TIME
--- NOTE | 2023-12-09 16:19 | NUR ---
PT PROVIDED DC INSTRUCTIONS. PT VERBALIZED UNDERSTANDING. PT GATHERED ALL BELONINGS PRIOR TO DEPARTURE.
[2023-12-09] MEDS ORDERED: ENOXAPARIN SODIUM 40 MG/0.4 ML SYR SC SCH (21:00)
[2023-12-13] MEDS ORDERED: VITAMIN D-32000 UNI1 (22:57)
[2023-12-13] MEDS ORDERED: MAGNESIUM 250 M1 TAB (22:57)
== END 2023-12-09 18:00 | disposition home health service (06) ==
LOC: ED 21:30 → ED-I 22:40 → ED 23:45 → ED-I 23:46 → MS2 12-09 09:59
PROVIDERS: Internal Medicine; Nurse Practitioner Family; ADMIT Internal Medicine; ATTEND Internal Medicine
DX: T73.3XXA Exhaustion due to excessive exertion, initial encounter (principal); E86.0 Dehydration; E87.1 Hypo-osmolality and hyponatremia; D72.829 Elevated white blood cell count, unspecified; I10 Essential (primary) hypertension; E11.9 Type 2 diabetes mellitus without complications; M10.9 Gout, unspecified; I25.2 Old myocardial infarction; Y93.A9 Activity, other involving cardiorespiratory exercise; Z95.5 Presence of coronary angioplasty implant and graft; Z79.4 Long term (current) use of insulin; Z79.02 Long term (current) use of antithrombotics/antiplatelets; Z60.2 Problems related to living alone